=== PATIENT | male | born 1980 | race Caucasian/White ===

== ENCOUNTER 2019-03-28 01:33 | Outpatient (CLI) | payer OTHER ==
[2019-03-28 15:28] LABS: Mean Corpuscular HGB CONC 32.6 g/dL (32.0-36.0); Mean Corpuscular Hemoglobin 27.5 pg (27.0-31.0); Mean Corpuscular Volume 84.4 fL (78.0-98.0); Mean Platelet Volume 8.4 fL (7.4-10.4); Platelet Count 279 thou/uL (130-400); RBC Distribution Width 14.6 % (11.5-14.5); Red Blood Cell (RBC) Count 5.07 mill/uL (4.70-6.10); White Blood Cell (WBC) Count 11.4 thou/uL (4.8-10.8)
[2019-03-28 15:49] LABS: Anion Gap 14 mmol/L (10-20); BUN (Urea Nitrogen) 12 mg/dL (8.9-20.6); Calc. Creatinine Clearance 0 mL/min (70-130); Carbon Dioxide 23 mmol/L (22-29); Chloride 100 mmol/L (98-107); Estimated GFR-MDRD Greater than 90; Glucose 123 mg/dL (70-105); Potassium 4.3 mmol/L (3.5-5.1); Sodium 133 mmol/L (136-145)
--- NOTE | 2019-03-30 09:16 | EKG ---
Test Reason : Blood Pressure : / mmHG Vent. Rate : 093 BPM Atrial Rate : 093 BPM P-R Int : 172 ms QRS Dur : 096 ms QT Int : 380 ms P-R-T Axes : 039 041 038 degrees QTc Int : 472 ms Normal sinus rhythm Low voltage QRS Borderline ECG No previous ECGs available Confirmed by DR. Brielle OLEA MD ([id number]) on 03/30/2019 9:16:03 AM Referred By: SINA Confirmed By:DR. Brielle OLEA MD
== END 2019-03-28 01:34 | disposition home or self-care (01) ==
LOC: LABBT 01:33
PROVIDERS: ATTEND Neurological Surgery
DX: Z01.818 Encounter for other preprocedural examination (principal); Q07.00 Arnold-Chiari syndrome without spina bifida or hydrocephalus
CPT/HCPCS: 80048; 85027; 93005; 93010

== ENCOUNTER 2019-03-28 14:00 | Inpatient (IN) | payer OTHER ==
[2019-03-29] MEDS ORDERED: Clindamycin/D5W 900 mg/50 ml Premix Bag ONE (07:14)
[2019-03-29] MEDS ORDERED: Levofloxacin 500 mg/D5W 100 ml Premix Bag ONE (07:14)
[2019-03-29] MEDS ORDERED: Bacitracin Zinc Ointment 30 gm TUBE ONE (07:50)
[2019-03-29] MEDS ORDERED: Bupivacaine HCl 0.5%/Epinephrine 1:200,000/PF 30 ml Vial ONE (07:51)
[2019-03-29] MEDS ORDERED: Thrombin 5000 UNITS/5 ML VIAL ONE (08:47)
[2019-03-29] MEDS ORDERED: Fentanyl 100 MCG/2 ML VIAL ONE ×3 (09:12→13:50)
[2019-03-29] MEDS ORDERED: Ophthalmic Irrigation Solution 15 ML ONE (10:12)
[2019-03-29] MEDS ORDERED: Rocuronium Bromide 50 MG/5 ML VIAL ONE (10:16)
[2019-03-29] MEDS ORDERED: HYDROmorphone 2 MG/ML VIAL ONE (10:36)
[2019-03-29] MEDS ORDERED: HYDROmorphone 2 MG/ML VIAL SLOW IVP PRN (11:51)
[2019-03-29] MEDS ORDERED: Meperidine HCl/PF 25 MG/ML VIAL SLOW IVP PRN (11:51)
[2019-03-29] MEDS ORDERED: Promethazine HCl 25 MG/ML VIAL SLOW IVP PRN (11:51)
[2019-03-29] MEDS ORDERED: Promethazine HCl 25 MG/ML VIAL IM PRN (11:51)
[2019-03-29] MEDS ORDERED: SUGAMMADEX SODIUM 500 MG/5 ML VIAL ONE (11:58)
[2019-03-29] MEDS ORDERED: Albuterol Sulfate HFA (OR ONLY) ONE (11:58)
[2019-03-29] MEDS ORDERED: Morphine 4 MG/ML VIAL SLOW IVP PRN (12:48)
[2019-03-29] MEDS ORDERED: diphenhydrAMINE 50 MG/ML VIAL IVP PRN (12:48)
[2019-03-29] MEDS ORDERED: Mag-Al 1200 mg/1200 mg/30 ML UDCUP PO PRN (12:48)
[2019-03-29] MEDS ORDERED: Bisacodyl 10 MG SUPP PR PRN (12:48)
[2019-03-29] MEDS ORDERED: Acetaminophen 325 MG TAB PO PRN (12:48)
[2019-03-29] MEDS ORDERED: Ondansetron PF 4 MG/2 ML Vial IVP PRN (12:48)
[2019-03-29] MEDS ORDERED: Cyclobenzaprine 10 MG TAB PO PRN (12:48)
[2019-03-29] MEDS ORDERED: PROVENTIL INHALER 6.7 G (200 INHALATIONS) INH PRN (12:54)
[2019-03-29] MEDS ORDERED: Morphine 2 MG/ML SYRINGE SLOW IVP PRN (13:05)
--- NOTE | 2019-03-29 14:51 | OP ---
DATE OF PROCEDURE: 03/29/2019 VESSEL OPERATOR: Donnell Butcher. INDICATION: Pain. DIAGNOSIS: Chiari malformation. PROCEDURE PERFORMED: Chiari decompression. ANESTHESIA: General. TECHNIQUE: The patient was brought into the operating room and placed under general anesthesia. A 3-point Syed abeba was applied to his head and he was flipped from a supine to a prone position. He was carefully placed on the table in the neutral position and the abeba was secured to the bed. He was placed in the slight degree of reverse Trendelenburg due to his large body habitus. An incision was then planned, extending from the inion to the midportion of the cervical spine. After prepping and draping and after an appropriate preoperative pause, the incision was created. The soft tissues were swept away from midline. We spent an extensive amount of time at least twice the operative time in our dissection due to his very large body habitus, but also due to the nature of his posterior fossa, which projects almost horizontally making it not only deeper to reach, but had a sharp ring a little more difficult to decompress. As such, surgical modifier will be applied. An acorn drill bit as well as a matchstick drill bit as well as 1, 2, and 3-mm Kerrisons were ultimately performed to perform the bone work, which involved extending the opening of the posterior aspect of the foramen magnum in order to provide more rooms for the cerebellar tonsils. After removing the bone, the wound was copiously irrigated. Hemostasis was maintained throughout. The wound was then closed in anatomic layers and a pressure dressing was applied. There were no known procedural complications. Job ID: [id number]
[2019-03-29] MEDS: Sodium Chloride 0.9% 1,000 ML IV SCH (14:52)
[2019-03-29 15:02] VITALS: BMI 64.4
[2019-03-29] MEDS: Clindamycin/D5W 900 MG in Premix Bag 1 BAG IVPB SCH ×2 (16:22→23:44)
[2019-03-29] MEDS: Montelukast Sodium 10 mg Tablet PO SCH (20:52)
[2019-03-29] MEDS: Atorvastatin Calcium 40 MG TAB PO SCH (20:52)
[2019-03-29] MEDS: Flecainide 50 MG TAB PO SCH (20:52)
[2019-03-29] MEDS: HYDROcodone/Acetaminophen 5/325 mg Tablet PO PRN (20:53)
[2019-03-29] MEDS: Fluticasone Propionate Nasal Spray 16 gm Bottle NASAL SCH (20:54)
[2019-03-29] MEDS: rOPINIRole HCl 2 MG TAB PO SCH (20:56)
[2019-03-29] MEDS ORDERED: LORCASERIN HCL 10 MG PO SCH (21:00)
[2019-03-30] MEDS: Sodium Chloride 0.9% 1,000 ML IV SCH ×2 (02:52→18:34)
[2019-03-30] MEDS: HYDROcodone/Acetaminophen 5/325 mg Tablet PO PRN ×5 (03:38→22:04)
[2019-03-30] MEDS: Tamsulosin HCl 0.4 MG CAP PO SCH (05:55)
[2019-03-30] MEDS: Levothyroxine Sodium 100 MCG TAB PO SCH (05:55)
[2019-03-30 08:05] LABS: Anion Gap 13 mmol/L (10-20); BUN (Urea Nitrogen) 11 mg/dL (8.9-20.6); Calc. Creatinine Clearance 322 mL/min (70-130); Calcium 9.1 mg/dL (7.8-10.44); Carbon Dioxide 23 mmol/L (22-29); Chloride 102 mmol/L (98-107); Estimated GFR-MDRD Greater than 90; Glucose 146 mg/dL (70-105); Potassium 4.2 mmol/L (3.5-5.1); Sodium 134 mmol/L (136-145)
[2019-03-30] MEDS: Clindamycin/D5W 900 MG in Premix Bag 1 BAG IVPB SCH ×2 (08:31→16:38)
[2019-03-30] MEDS: Flecainide 50 MG TAB PO SCH ×2 (08:33→21:49)
[2019-03-30] MEDS: Fluticasone Propionate Nasal Spray 16 gm Bottle NASAL SCH ×2 (08:34→21:50)
[2019-03-30] MEDS: Lisinopril 10 MG TAB PO SCH (08:34)
[2019-03-30] MEDS: Loratadine 10 MG TAB PO SCH (08:34)
--- NOTE | 2019-03-30 10:11 | PRG ---
DATE OF SERVICE: 03/30/2019 Mr. Cobb is postop day #1 following, he had a decompression and is overall doing well. He has the expected neck pain and headache after this particular surgery, he does report, however, significant vertigo whenever he stands up, deciding the room spins around him. I am not certain where this would be coming from, but we will continue to follow. I would still like to see today, but if his dizziness does not resolve, we will likely keep him more nightly. We then transitioned from the IMCU to the floor today. Job ID: [id number]
[2019-03-30] MEDS: Atorvastatin Calcium 40 MG TAB PO SCH (21:48)
[2019-03-30] MEDS: rOPINIRole HCl 2 MG TAB PO SCH (21:49)
[2019-03-30] MEDS: Montelukast Sodium 10 mg Tablet PO SCH (21:49)
[2019-03-31] MEDS: Clindamycin/D5W 900 MG in Premix Bag 1 BAG IVPB SCH (00:21)
[2019-03-31] MEDS: HYDROcodone/Acetaminophen 5/325 mg Tablet PO PRN ×4 (02:19→20:20)
[2019-03-31] MEDS: Levothyroxine Sodium 100 MCG TAB PO SCH (06:50)
[2019-03-31] MEDS: Tamsulosin HCl 0.4 MG CAP PO SCH (06:50)
[2019-03-31] MEDS: Sodium Chloride 0.9% 1,000 ML IV SCH ×2 (07:13→18:39)
[2019-03-31] MEDS: Loratadine 10 MG TAB PO SCH (08:40)
[2019-03-31] MEDS: Lisinopril 10 MG TAB PO SCH (08:40)
[2019-03-31] MEDS: Polyethylene Glycol 3350 17 GM Packet PO SCH (08:41)
[2019-03-31] MEDS: Fluticasone Propionate Nasal Spray 16 gm Bottle NASAL SCH ×2 (08:42→20:14)
[2019-03-31] MEDS: Flecainide 50 MG TAB PO SCH ×2 (09:11→20:12)
--- NOTE | 2019-03-31 09:41 | PRG ---
DATE OF SERVICE: 03/31/2019 Mr. Cobb is now 2 days status post Chiari decompression. He is resting comfortably in a chair when I visited with him in the room. He reports the anticipated incisional pain. He has had some dizziness since surgery, which is slowly improving. He has had to have a bowel movement. He plans to get up and take a shower this morning. I inspected his incision which is well-approximated and looks good. The plan today will be to mobilize him in the hallways as he was mobilizing in the room over the past 24 hours. He and I discussed the plan of dismissal home tomorrow. Job ID: [id number]
[2019-03-31] MEDS: rOPINIRole HCl 2 MG TAB PO SCH (20:12)
[2019-03-31] MEDS: Atorvastatin Calcium 40 MG TAB PO SCH (20:13)
[2019-03-31] MEDS: Montelukast Sodium 10 mg Tablet PO SCH (20:13)
[2019-04-01] MEDS: HYDROcodone/Acetaminophen 5/325 mg Tablet PO PRN ×2 (00:24→08:18)
[2019-04-01] MEDS: Levothyroxine Sodium 100 MCG TAB PO SCH (06:04)
[2019-04-01] MEDS: Tamsulosin HCl 0.4 MG CAP PO SCH (06:04)
[2019-04-01] MEDS: Lisinopril 10 MG TAB PO SCH (08:18)
[2019-04-01] MEDS: Fluticasone Propionate Nasal Spray 16 gm Bottle NASAL SCH (08:20)
[2019-04-01] MEDS: Loratadine 10 MG TAB PO SCH (08:20)
[2019-04-01] MEDS: Polyethylene Glycol 3350 17 GM Packet PO SCH (08:22)
[2019-04-01] MEDS: Sodium Chloride 0.9% 1,000 ML IV SCH (08:22)
[2019-04-01] MEDS: Flecainide 50 MG TAB PO SCH (10:24)
[2019-04-01 11:49] VITALS: BP 123/67; TEMP 98
--- NOTE | 2019-04-02 09:17 | PQF ---
KENDY LEW, MARICHUY DANGELO MD [id number] CLINICAL DOCUMENTATION IMPROVEMENT CLARIFICATION FORM: ICD-10 Updated PLEASE DO AN ADDENDUM TO THE PROGRESS NOTE WITH ANY DOCUMENTATION UPDATES OR ADDITIONS AND CARRY THROUGH TO DC SUMMARY. THANK YOU. DATE: 04/02 ATTN: DR. LORETO MCCALL Please exercise your independent, professional judgment in responding to the clarification form. Clinical indicators are provided on the bottom of this form for your review. Please check appropriate box(s): BMI > 40 with associated diagnosis of: (check one) [ X] Morbid (Severe) Obesity [ X ] Due to excess calories [ ] with Alveolar Hypoventilation (Pickwickian syndrome) [ ] Other diagnosis [ ] Unable to determine In addition, please specify: Present on Admission (POA): [ X ] Yes [ ] No [ ] Unable to Determine For continuity of documentation, please document condition throughout progress notes and discharge summary. Thank You. BMI < 19 Under weight 19 - 24.9 Healthy 25.0 - 29.9 Slightly Overweight 30.0 - 34.9 Obese 35.0 - 39.9 Severely Obese 40.0 and Over Morbidly Obese CLINICAL INDICATORS - SIGNS / SYMPTOMS / LABS BMI: 64.4 OP REPORT 03/29 (STEFANY) : CHIARI DECOMPRESSION (HE WAS PLACED IN THE SLIGHT DEGREE OF REVERSE TRENDELENBURG D/T HIS LARGE BODY HABITUS. ...WE SPENT AN EXTENSIVE AMOUNT OF TIME AT LEAST TWICE THE OPERATIVE TIME IN OUR DISSECTION D/ T HIS VERY LARGE BODY HABITUS) NURSING NOTES 03/29: PT TRANSFERRED TO IMCU BED USING HOVER MAT RISK: INCREASED OPERATIVE TIME (03/29 OP REPORT) HTN (03/29 ANESTHESIA PRE-OP RECORD) TANNER (03/29 ANESTHESIA PRE-OP RECORD) TREATMENT: SPECIAL EQUIPMENT FOR TRANSFER (HOVER MAT) ADD'L STAFF FOR POSITIONING, TRANSFERS, ETC THANK YOU! Karen (This form is maintained as a part of the permanent medical record) 2014 [employer]. All Rights Reserved Karen Goodman RN, BSN [email or web address] Office: [phone] [facility]
== END 2019-04-01 12:05 | disposition home or self-care (01) | DRG 27 ==
LOC: SURG A 03-29 06:15 → CCU 03-29 11:11 → IMCU/EMU 03-29 14:39 → SURG A 03-30 11:07
PROVIDERS: ADMIT Neurological Surgery; ATTEND Neurological Surgery
PROC: 00NC0ZZ Release Cerebellum, Open Approach (ICD-10-PCS; principal; 2019-03-29)
DX: Q07.00 Arnold-Chiari syndrome without spina bifida or hydrocephalus (principal); I10 Essential (primary) hypertension; E78.5 Hyperlipidemia, unspecified; I48.91 Unspecified atrial fibrillation; J45.909 Unspecified asthma, uncomplicated; G47.30 Sleep apnea, unspecified; E03.9 Hypothyroidism, unspecified; G25.81 Restless legs syndrome; G43.009 Migraine without aura, not intractable, without status migrainosus; R42 Dizziness and giddiness; Z90.49 Acquired absence of other specified parts of digestive tract; Z88.0 Allergy status to penicillin; Z88.5 Allergy status to narcotic agent
CPT/HCPCS: 36415; 80048; 85027; 93005; 93010; 94002; J0670; J1170; J1956; J2270; J2405; J3010; J3490

== ENCOUNTER 2019-04-06 20:00 | Observation (INO) | payer OTHER ==
[2019-04-06 20:49] LABS: #Basophils 0.1 thou/uL (0.0-0.2); #Eosinphils 0.3 thou/uL (0.0-0.7); #Lymphocytes 2.9 thou/uL (1.20-3.40); #Monocytes 0.8 thou/uL (0.11-0.59); %Basophils 0.9 % (0.0-1.0); %Eosinophils 2.3 % (0.0-10.0); %Lymphocytes 23.7 % (21.0-51.0); %Monocytes 6.9 % (0.0-10.0); %Neutrophils 66.1 % (42.0-75.0); Mean Corpuscular Hemoglobin 27.8 pg (27.0-31.0); Mean Corpuscular Volume 84.2 fL (78.0-98.0); Mean Platelet Volume 7.6 fL (7.4-10.4); Platelet Count 279 thou/uL (130-400); RBC Distribution Width 14.4 % (11.5-14.5); Red Blood Cell (RBC) Count 4.68 mill/uL (4.70-6.10); White Blood Cell (WBC) Count 12.1 thou/uL (4.8-10.8)
--- NOTE | 2019-04-06 21:09 | CT ---
CT HEAD WITHOUT CONTRAST: 04/06/19 HISTORY: Postop wound swelling. Ventricles have normal size and position. No acute intracranial abnormality. Skin sherrie are seen in the midline posteriorly. There is a fluid dense collection seen within the m usculature posterior to the occipital bone which could represent hematoma or abscess. This fluid dens e collection measures approximately 4 cm AP dimension x 4 cm width. The cerebellar tonsils appear to be low lying, possibly indicating cerebellar ectopia or Chiari I. Po stoperative changes may have been due to this abnormality. Clinical information is not provided. IMPRESSION: 1. No acute intracranial abnormality. 2. Postoperative changes posteriorly with skin sherrie. There is a fluid dense collection in the scalp musculature posterior to the occipital bone in the midline which could represent hematoma or d eveloping abscess. POS: MARYCARMEN
[2019-04-06 21:11] LABS: Anion Gap 13 mmol/L (10-20); BUN (Urea Nitrogen) 15 mg/dL (8.9-20.6); CRP (Inflammatory) 2.54 mg/dL (= or < 0.5); Calc. Creatinine Clearance 0 mL/min (70-130); Calcium 9.4 mg/dL (7.8-10.44); Carbon Dioxide 26 mmol/L (22-29); Chloride 100 mmol/L (98-107); Estimated GFR-MDRD Greater than 90; Glucose 84 mg/dL (70-105); Potassium 4.1 mmol/L (3.5-5.1); Sodium 135 mmol/L (136-145)
[2019-04-06] MEDS ORDERED: tiZANidine HCl 4 MG TAB PO PRN (22:33)
[2019-04-06] MEDS ORDERED: Morphine 4 MG/ML VIAL SLOW IVP PRN (22:33)
[2019-04-06] MEDS ORDERED: HYDROcodone/Acetaminophen 7.5/325 mg Tablet PO PRN (22:33)
[2019-04-06] MEDS ORDERED: Milk Of Magnesia 30 ML UDCUP PO PRN (22:33)
[2019-04-06] MEDS ORDERED: Acetaminophen 325 MG TAB PO PRN (22:33)
[2019-04-06] MEDS ORDERED: Fleet Enema 133 ML BOT PR PRN (22:33)
[2019-04-06] MEDS ORDERED: Bisacodyl 10 MG SUPP PR PRN (22:33)
[2019-04-06] MEDS ORDERED: Promethazine HCl 25 MG/ML VIAL IM/IV PRN (22:33)
[2019-04-06] MEDS ORDERED: Mag-Al 1200 mg/1200 mg/30 ML UDCUP PO PRN (22:33)
[2019-04-06] MEDS ORDERED: traMADol HCl 50 MG TAB PO PRN (22:37)
[2019-04-06] MEDS ORDERED: PROVENTIL INHALER 6.7 G (200 INHALATIONS) INH PRN (22:40)
[2019-04-06] MEDS ORDERED: (Acetaminophen With Codeine [Tylenol With Codeine #4] 1 TABLET) PO PRN (22:40)
[2019-04-06] MEDS ORDERED: Sodium Chloride 0.9% 1,000 ML IV SCH (22:45)
[2019-04-07 00:06] VITALS: BMI 62.3
[2019-04-07] MEDS: Clindamycin/D5W 900 MG in Premix Bag 1 BAG IVPB SCH ×2 (00:53→08:48)
[2019-04-07 03:48] VITALS: TEMP 98.5
--- NOTE | 2019-04-07 04:19 | HP ---
This is Jose Villareal PA-C dictating a report for Priyank Wells MD. This is a 50-minute initial patient evaluation of which greater than 50% of the exam was spent in counseling and coordinating the patient's care. Remainder of the exam was spent in review of the patient's medical records and formulation of treatment plan as well as review of appropriate imaging studies. CHIEF COMPLAINT: Postoperative wound drainage. HISTORY OF PRESENT ILLNESS: Mr. Cobb is a pleasant 39-year-old male who presented to [facility] for the above complaints. Apparently, he underwent Chiari malformation decompression surgery with Dr. Trejo on 03/29/2019. Intraoperatively, bone work was done, but there was no opening of the dura according to the operative report. The patient notes over the past 1 to 2 days, he has had bloody reddish drainage from the incision. He did note lifting something heavy prior to this drainage. He still complains of constant headaches on top of migraine headaches, but notes overall since surgery, these have slightly improved. It is unclear if the patient is a difficult historian to determine if he is having postural headaches, although he does not currently appear to be in any type of acute distress. He has had no fever or chills. No arm pain, but some increased pain and burning at the incision site. He has required the use of a walker since surgery, but again overall states that he is improving. He states with adequate pain control, he is feeling better, but has been unable to fill his pain medications as he lives in the [facility] and they will not fill Dr. Trejo's prescriptions. Review of patient's head CT from earlier today shows a small 4 x 4 cm fluid collection, although at this point, it does not appear to resemble any type of infection or CSF leak, but rather postoperative fluid collection. PHYSICAL EXAMINATION: The patient is awake, alert, and appropriate. He is morbidly obese. GCS is 15. He has good strength in all the extremities. He is ambulating back from the bathroom and appears to be rather steady on his feet, although may be walking with a wide stance gait given his large body habitus. He is using a walker. In regard to his overall appearance, he does not appear to be in any acute distress nor does he look infected. His incision is closed with sherrie. There is some dried blood at the bottom part of the incision and it is slightly swollen. This is also difficult to assess given the patient's large BMI. I have palpated extensively throughout the incision and I cannot express any type of drainage. There is some slight tenderness to palpation at the incision site. Again, the incision is closed with sherrie. IMPRESSION AND DIAGNOSIS: Status post Chiari malformation decompression on 03/29/2019, with intermittent wound drainage. PLAN: At this time, the patient appears to be very stable. Nonetheless, given the fact that he lives out of town and has had some intermittent wound drainage, we will admit him for overnight observation. I will keep clean dry gauze dressing on the incision and monitor for any type of drainage tomorrow, should there be a significant amount of drainage on the dressing, we will likely plan to over-sew the incision with a suture. We will also start the patient on prophylactic antibiotics he may eat. There is no plan for going to the OR at any time and I believe that this incision drainage is likely a postoperative seroma rather than any type of CSF leak or infection. We will continue the patient's home medications, although we will hold his Eliquis, although it is unclear if the patient has been taking this postoperatively. We will maximize his pain control and hope for dismissal later tomorrow after he has been observed. Please call with any changes in patient's neurologic status. Otherwise, we will check back on him in the morning. Job ID: [id number]
[2019-04-07] MEDS ORDERED: Levothyroxine Sodium 100 MCG TAB PO SCH (06:00)
[2019-04-07 08:57] VITALS: BP 131/75
[2019-04-07] MEDS ORDERED: Lisinopril 10 MG TAB PO SCH (09:00)
[2019-04-07] MEDS ORDERED: Fluticasone Propionate Nasal Spray 16 gm Bottle NASAL SCH (09:00)
[2019-04-07] MEDS ORDERED: Loratadine 10 MG TAB PO SCH (09:00)
[2019-04-07] MEDS ORDERED: Flecainide 50 MG TAB PO SCH (09:00)
[2019-04-07] MEDS ORDERED: LORCASERIN HCL 10 MG PO SCH (09:00)
--- NOTE | 2019-04-07 09:00 | PRG ---
DATE OF SERVICE: 04/07/2019 Mr. Cbob is a 39-year-old man readmitted now 10 days out from Chiari decompression. We received a phone call from [place] ER that he had wound drainage as such I asked that he be transferred for further evaluation and review of the operative note as well. It does not appear as if the dura was opened. This does not appear to be CSF upon my examination, but the patient has been on Eliquis for atrial fibrillation, and this appears to be sanguineous blood from the wound. It is currently dry and we can express nothing. He has a mild elevated white blood cell count and mild elevation in his CRP, both of which are normal with recent surgery. His sodium is 135. He has been afebrile and hemodynamically, neurologically at his baseline, which is intact. I should also add that he does feel as if his headaches are improved compared to preoperatively. We will send the patient out today after overnight observation last night with oral prophylactic antibiotic. I have asked that he hold his Eliquis for the next 1 week as I suspect the risk of cardioembolic stroke is quite low, but the increased risk of persistent wound drainage in particular sanguineous of nature is substantially high and increases risk for any type of fistula from the wound and wound infection. I should note head CT demonstrates no hydrocephalus. There is expected postoperative hematoma, seroma in the soft tissue, not at all unusual. We will plan to dismiss him and we discussed all of it with he and his family. Job ID: [id number]
[2019-04-07] MEDS ORDERED: Atorvastatin Calcium 40 MG TAB PO SCH (21:00)
[2019-04-07] MEDS ORDERED: rOPINIRole HCl 2 MG TAB PO SCH (21:00)
[2019-04-07] MEDS ORDERED: Montelukast Sodium 10 mg Tablet PO SCH (21:00)
== END 2019-04-07 10:51 | disposition home or self-care (01) ==
LOC: ERS 20:00 → SURG B 23:17
PROVIDERS: ADMIT Surgery; ATTEND Surgery
DX: L76.34 Postprocedural seroma of skin and subcutaneous tissue following other procedure (principal); L76.32 Postprocedural hematoma of skin and subcutaneous tissue following other procedure; G43.909 Migraine, unspecified, not intractable, without status migrainosus; I48.91 Unspecified atrial fibrillation; R79.82 Elevated C-reactive protein (CRP); D72.829 Elevated white blood cell count, unspecified; E78.5 Hyperlipidemia, unspecified; E66.01 Morbid (severe) obesity due to excess calories; Z68.44 Body mass index [BMI] 60.0-69.9, adult; Z79.01 Long term (current) use of anticoagulants; Z79.51 Long term (current) use of inhaled steroids; Z79.899 Other long term (current) drug therapy; Z98.890 Other specified postprocedural states
CPT/HCPCS: 36415; 70450; 80048; 85025; 85652; 86140; 96361; 96365; G0378; J3490